=== PATIENT | male | born 1995 | race Caucasian/White ===

== ENCOUNTER 2016-07-15 02:38 | Emergency (ER) | payer BC, OTHER ==
[~2016-07-15] VITALS: Ht 182.9 cm; Wt 89.0 kg
[2016-07-15 02:45] VITALS: TEMP 36.5; Ht 182.9 cm; Wt 89.0 kg
[2016-07-15] MEDS ORDERED: SODIUM CHLORIDE 0.9% 1000ML 1,000 ML IV STA (02:47)
[2016-07-15 02:52] VITALS: O2SAT 100
[2016-07-15] MEDS ORDERED: OPTIRAY 320 IV PRN (03:15)
[2016-07-15 03:18] LABS: BASO % 0.1 %; BASO ABS # 0.01 K/uL (0-0.2); COMPLETE YES; EOS % 1.1 %; HEMATOCRIT 41.7 % (42-52); IG% 0.3 %; LYMPH % 36.4 %; LYMPH ABS # 2.85 K/uL (1.2-3.4); MEAN CELL VOLUME 88.5 fL (80-100); MEAN PLATELET VOLUME 10.5 fL (7.4-10.4); MONO % 6.3 %; NEUT % 55.8 %; PLATELET COUNT 191 K/uL (130-400); RED BLOOD COUNT 4.71 M/uL (4.7-6.1); WHITE BLOOD COUNT 7.83 K/uL (4.8-10.8)
[2016-07-15 03:20] LABS: ISTAT CREATININE 1.6 mg/dl; ISTAT HEMOGLOBIN 14.6 g/dl (14.0-18.0); ISTAT IONIZED CALCIUM 1.08 mmol/l
[2016-07-15 03:36] LABS: BUN/CREATININE RATIO 8.9 (10-20); CALCIUM 8.3 mg/dl (8.5-10.1); CREATININE 1.2 mg/dl (0.60-1.40); POTASSIUM 3.6 mmol/L (3.5-5.1)
[2016-07-15] MEDS ORDERED: AMOX875T PO (06:09)
[2016-07-15] MEDS ORDERED: AMOXICIL/CLAVU 875MG HOME PACK PO ONE ×2 (06:15→10:07)
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
[2016-07-15 10:05] VITALS: BP 120/55; PULSE 75; O2SAT 97
[2016-07-15] MEDS ORDERED: ACETAMINOPHEN 500 MG TAB PO ONE (10:07)
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
== END 2016-07-15 10:24 | disposition home or self-care (01) ==
LOC: EDBD 02:38 → C.EDA 02:39
DX: S09.90XA Unspecified injury of head, initial encounter (principal); S02.5XXA Fracture of tooth (traumatic), initial encounter for closed fracture; S01.511A Laceration without foreign body of lip, initial encounter; S20.219A Contusion of unspecified front wall of thorax, initial encounter; S30.811A Abrasion of abdominal wall, initial encounter; F10.129 Alcohol abuse with intoxication, unspecified; Y04.2XXA Assault by strike against or bumped into by another person, initial encounter; Y92.214 College as the place of occurrence of the external cause; Y90.8 Blood alcohol level of 240 mg/100 ml or more; S20.319A Abrasion of unspecified front wall of thorax, initial encounter; S20.419A Abrasion of unspecified back wall of thorax, initial encounter